=== PATIENT | male | born 1955 | race Caucasian/White ===

== ENCOUNTER 2019-04-05 19:12 | Emergency (ER) | payer BC ==
[2019-04-05 19:23] VITALS: TEMP 97.8
[2019-04-05] MEDS ORDERED: MORPHINE SULFATE 4 MG/ML SYRINGE IV STA (19:29)
[2019-04-05] MEDS ORDERED: PANTOPRAZOLE 40 MG/10 ML VIAL IVP STA (19:29)
[2019-04-05] MEDS ORDERED: SODIUM CHLORIDE 0.9% 1,000 ML IV STA (19:29)
[2019-04-05] MEDS ORDERED: ONDANSETRON 4 MG/2 ML VIAL IVP STA (19:29)
[2019-04-05] MEDS ORDERED: KETOROLAC 30 MG/ML 1 ML VIAL IVP STA (19:29)
--- NOTE | 2019-04-05 19:34 | ED ---
Abdominal Pain HPI - General Chief Complaint: Abdominal Pain Stated Complaint: Abdominal Pain Time Seen by Provider: 04/05/19 19:17 Source: patient, EMS, RN notes reviewed, old records reviewed Mode of arrival: EMS Limitations: no limitations - History of Present Illness Initial Comments: Patient is a 63-year-old male who presents emergency department today with sudden onset of right lower quadrant abdominal pain now radiating towards his back that started shortly after eating dinner. Patient states he's had extensive surgical history is including hernia repair as well as colon resections. He reports this was done to [facility]. Patient states these doses urine has been somewhat darker. Patient denies any associated fevers or chills, chest pain shortness of breath. Patient states he's had a subsequent past. He denies any other symptoms. - Related Data Previous Rx's Medication Instructions Recorded Aspirin EC [Ecotrin Low Dose] 81 mg PO DAILY #30 tablet. 05/16/16 Atenolol [Tenormin] 50 mg PO DAILY #30 tab 05/16/16 HYDROcodone/APAP 5-325MG [[place] 1 tab PO Q6HR PRN #10 tab 04/05/19 5-325] Ketorolac [Toradol] 10 mg PO TID #15 tab 04/05/19 Ondansetron Odt [Zofran Odt] 4 mg PO Q8HR PRN #20 tab 04/05/19 Tamsulosin [Flomax] 0.4 mg PO DAILY #7 cap 04/05/19 Allergies Allergy/AdvReac Type Severity Reaction Status Date / Time No Known Allergies Allergy Verified 05/20/16 15:31 Review of Systems ROS Statement: Those systems with pertinent positive or pertinent negative responses have been documented in the HPI. ROS Other: All systems not noted in ROS Statement are negative. Past Medical History Past Medical History: Cancer, Hypertension, Sleep Apnea/CPAP/BIPAP, Syncope Additional Past Medical History / Comment(s): colon cancer, has a cpap but doesnt not use it, see Dr Pimentel H & P History of Any Multi-Drug Resistant Organisms: None Reported Past Surgical History: Bowel Resection, Cholecystectomy Additional Past Surgical History / Comment(s): colonscopy, colostomy post-op bowel resection which has been reversed. Past Anesthesia/Blood Transfusion Reactions: No Reported Reaction Past Psychological History: No Psychological Hx Reported Smoking Status: Current every day smoker - Past Family History Brother(s) Additional Family Medical History / Comment(s): cardiac history, valve rep lacemant Father Family Medical History: Memory Impairment General Exam - General Exam Comments Initial Comments: 63-year-old male. Alert and oriented. No distress. Limitations: no limitations General appearance: alert, in no apparent distress Head exam: Present: atraumatic, normocephalic, normal inspection Eye exam: Present: normal appearance, PERRL, EOMI. Absent: scleral icterus, conjunctival injection, periorbital swelling ENT exam: Present: normal exam, mucous membranes moist Neck exam: Present: normal inspection. Absent: tenderness, meningismus, lymphadenopathy Respiratory exam: Present: normal lung sounds bilaterally. Absent: respiratory distress, wheezes, rales, rhonchi, stridor Cardiovascular Exam: Present: regular rate, normal rhythm, normal heart sounds. Absent: systolic murmur, diastolic murmur, rubs, gallop, clicks GI/Abdominal exam: Present: soft, tenderness (Right lower quadrant tenderness), normal bowel sounds. Absent: distended, guarding, rebound, rigid Extremities exam: Present: normal inspection, full ROM, normal capillary refill. Absent: tenderness, pedal edema, joint swelling, calf tenderness Back exam: Present: normal inspection Neurological exam: Present: alert, oriented X3, CN II-XII intact Psychiatric exam: Present: normal affect, normal mood Skin exam: Present: warm, dry, intact, normal color. Absent: rash Course Vital Signs 04/05/19 04/05/19 19:20 20:44 Temperature 97.8 F Pulse Rate 69 70 Respiratory 20 16 Rate Blood Pressure 137/69 123/83 O2 Sat by Pulse 96 Oximetry Medical Decision Making - Medical Decision Making Patient is a 63-year-old male presents with sudden onset of right lower quadrant abdominal pain. Patient reports some started after eating dinner. Multiple surgeries of the abdomen clean by resection. This time patient's lab work shows urinalysis positive for red blood cells and white blood cells. Labwork was reviewed and was unremarkable. CT abdomen and pelvis without contrast completed evidence of right-sided hydronephrosis hydroureter. Cannot rule out pelvic friends. Has no fever and no significant white count. I did give the Patient with Rocephin and will complete a urine culture. This times the stone is not visualized is likely pass that. I discussed a discharge Patient with a short course of pain medication Flomax and Toradol and Zofran for as well as still being retained within the bladder. Patient agrees to treatment plan will comply. Return parameters were discussed. - Lab Data Result diagrams: 04/05/19 19:37 04/05/19 19:37 Lab Results 04/05/19 04/05/19 04/05/19 Range/Units 19:37 19:37 19:37 WBC 7.7 (3.8-10.6) k/uL RBC 4.92 (4.30-5.90) m/uL Hgb 15.0 (13.0-17.5) gm/dL Hct 46.4 (39.0-53.0) % MCV 94.3 (80.0-100.0) fL MCH 30.4 (25.0-35.0) pg MCHC 32.2 (31.0-37.0) g/dL RDW 14.1 (11.5-15.5) % Plt Count 233 (150-450) k/uL Neutrophils % 65 % Lymphocytes % 23 % Monocytes % 7 % Eosinophils % 3 % Basophils % 1 % Neutrophils # 5.0 (1.3-7.7) k/uL Lymphocytes # 1.8 (1.0-4.8) k/uL Monocytes # 0.6 (0-1.0) k/uL Eosinophils # 0.2 (0-0.7) k/uL Basophils # 0.0 (0-0.2) k/uL Sodium 142 (137-145) mmol/L Potassium 4.6 (3.5-5.1) mmol/L Chloride 110 H (98-107) mmol/L Carbon Dioxide 26 (22-30) mmol/L Anion Gap 6 mmol/L BUN 29 H (9-20) mg/dL Creatinine 1.12 (0.66-1.25) mg/dL Est GFR (CKD-EPI)AfAm 82 (>60 ml/min/1.73 sqM) Est GFR (CKD-EPI)NonAf 71 (>60 ml/min/1.73 sqM) Glucose 96 (74-99) mg/dL Calcium 8.9 (8.4-10.2) mg/dL Total Bilirubin 0.4 (0.2-1.3) mg/dL AST 18 (17-59) U/L ALT 29 (21-72) U/L Alkaline Phosphatase 54 (38-126) U/L Total Protein 5.8 L (6.3-8.2) g/dL Albumin 3.6 (3.5-5.0) g/dL Amylase 38 (30-110) U/L Lipase 70 (23-300) U/L Urine Color Yellow Urine Appearance Clear (Clear) Urine pH 6.5 (5.0-8.0) Ur Specific Busy 1.019 (1.001-1.035) Urine Protein Trace H (Negative) Urine Glucose (UA) Negative (Negative) Urine Ketones Negative (Negative) Urine Blood Moderate H (Negative) Urine Nitrite Negative (Negative) Urine Bilirubin Negative (Negative) Urine Urobilinogen 2.0 (<2.0) mg/dL Ur Leukocyte Esterase Negative (Negative) Urine RBC >182 H (0-5) /hpf Urine WBC 15 H (0-5) /hpf Ur Squamous Epith Cells <1 (0-4) /hpf Urine Mucus Rare H (None) /hpf - Radiology Data Radiology results: report reviewed Right-sided hydronephrosis and hydroureter with perinephric edema. he was seen. correlate to recently passed stone or nonopaque stone. consider pyelonephritis. previous intestinal surgeries. Disposition Clinical Impression: Right kidney stone Disposition: HOME SELF-CARE Condition: Good Instructions (If sedation given, give patient instructions): Kidney Stones (ED) Additional Instructions: Advised to follow-up with urology. Take medications as prescribed. Return to the emergency department if any alarming signs or symptoms occur. Prescriptions: Tamsulosin [Flomax] 0.4 mg PO DAILY #7 cap HYDROcodone/APAP 5-325MG [[place] 5-325] 1 tab PO Q6HR PRN #10 tab PRN Reason: Pain Ketorolac [Toradol] 10 mg PO TID #15 tab Ondansetron Odt [Zofran Odt] 4 mg PO Q8HR PRN #20 tab PRN Reason: Nausea Is patient prescribed a controlled substance at d/c from ED?: Yes If prescribed controlled substance>3 days was MAPS reviewed?: Prescribed <3 Days If opioid is for acute pain is fill amount 7 days or less?: Yes If Rx opioid, was Start Talking consent form obtained?: Yes Referrals: Terrell King DO [Primary Care Provider] - 1-2 days Tam Hendricks MD [STAFF PHYSICIAN] - 1-2 days Time of Disposition: 21:05
[2019-04-05 19:53] LABS: Basophils % (A) 1 %; Eosinophils # (A) 0.2 k/uL (0-0.7); Eosinophils % (A) 3 %; HCT 46.4 % (39.0-53.0); Lymphocytes # (A) 1.8 k/uL (1.0-4.8); Lymphocytes % (A) 23 %; MCH 30.4 pg (25.0-35.0); MCHC 32.2 g/dL (31.0-37.0); MCV 94.3 fL (80.0-100.0); Mean Platelet Volume 6.8; Monocytes # (A) 0.6 k/uL (0-1.0); Monocytes % (A) 7 %; Neutrophils % (A) 65 %; Platelet Count 233 k/uL (150-450); RBC 4.92 m/uL (4.30-5.90); RDW 14.1 % (11.5-15.5); WBC 7.7 k/uL (3.8-10.6)
[2019-04-05] MEDS: SODIUM CHLORIDE 0.9% 1,000 ML IV STA ×2 (19:54→20:42)
[2019-04-05 20:00] LABS: Appearance,Urine Clear (Clear); Bilirubin,Urine Negative (Negative); Blood,Urine Moderate (Negative); Color,Urine Yellow; Glucose,Urine (UA) Negative (Negative); Ketones,Urine Negative (Negative); Leukocyte Esterase,Urine Negative (Negative); Mucus,Urine Rare /hpf; Nitrite,Urine Negative (Negative); PH, Urine 6.5 (5.0-8.0); Protein,Urine Trace (Negative); RBC,Urine >182 /hpf (0-5); Specific Gravity,Urine 1.019 (1.001-1.035); Squamous Epithelial Cell,Urine <1 /hpf (0-4); WBC,Urine 15 /hpf (0-5)
[2019-04-05 20:02] LABS: Albumin 3.6 g/dL (3.5-5.0); Calcium 8.9 mg/dL (8.4-10.2); Potassium 4.6 mmol/L (3.5-5.1); Total Bilirubin 0.4 mg/dL (0.2-1.3); Total Protein 5.8 g/dL (6.3-8.2)
--- NOTE | 2019-04-05 20:23 | CT ---
EXAMINATION TYPE: CT abdomen pelvis wo con DATE OF EXAM: 04/05/2019 COMPARISON: None HISTORY: Right side inguinal pain. CT DLP: 1317.4 mGycm Automated exposure control for dose reduction was used. TECHNIQUE: Helical acquisition of images was performed from the lung bases through the pelvis. FINDINGS: Lung bases are clear of consolidation. There is minimal pleural thickening at the left lung base. The re is no pericardial effusion. Stomach appears normal. Spleen appears normal. There is no pancreatic mass. Liver has normal size and contour. Bile ducts are not dilated. There are clips from cholecystec shannon. There is no adrenal mass. There is right-sided hydronephrosis and hydroureter. There is right-sided p erinephric edema. There is mild right-sided periureteral edema. I see no definite ureteral calculus. There is no retroperitoneal adenopathy. There is subcutaneous increased density over the right anteri or mid abdomen that could be postsurgical. There are surgical clips involving the right colon. The ap pendix appears normal. Cecum appears normal. There is no evidence of free air. There is no inguinal hernia. Bladder distends fairly smoothly. Ther e is no free fluid in the pelvis. There is no mesenteric edema. There is no evidence of bowel obstruc tion. There is prostatic calcification. There are sigmoid diverticula without evidence of diverticuli tis. There are some spondylotic changes in the lumbar spine. There is no compression fracture. There is no evidence of bony destructive process. Bony pelvis is intact. IMPRESSION: THERE IS RIGHT-SIDED HYDRONEPHROSIS AND HYDROURETER WITH PERINEPHRIC EDEMA. NO CALCULUS SEEN. THIS CO ULD RELATE TO RECENTLY PASSED STONE OR NONOPAQUE STONE. ALSO CONSIDER PYELONEPHRITIS. PREVIOUS INTESTINAL SURGERY.
[2019-04-05] MEDS ORDERED: cefTRIAXone IN SWFI 1,000 MG/10 ML SYRINGE IVP STA (20:38)
[2019-04-05 20:45] VITALS: BP 123/83; PULSE 70; RESP 16
[2019-04-05] MEDS ORDERED: ACET/COD 300 MG/30 MG STARTER PACK 6 TAB BTL PO STA (21:09)
[2019-04-05] MEDS ORDERED: TAMSULOSIN 0.4 MG CAP.ER.24H PO STA (21:09)
== END 2019-04-05 21:31 | disposition home or self-care (01) ==
LOC: EC 19:12
DX: N13.2 Hydronephrosis with renal and ureteral calculous obstruction (principal); F17.200 Nicotine dependence, unspecified, uncomplicated; G47.30 Sleep apnea, unspecified; Z99.89 Dependence on other enabling machines and devices; Z85.038 Personal history of other malignant neoplasm of large intestine; Z98.890 Other specified postprocedural states; Z90.49 Acquired absence of other specified parts of digestive tract; Z93.3 Colostomy status
CPT/HCPCS: 36415; 80053; 82150; 83690; 85025; 81001; 87086; 74176; 99285; 96374; 96375 ×4; 96361 ×2; J2270; J2405; J0696; J1885; C9113